=== PATIENT | male | born 1980 | race Caucasian/White ===

== ENCOUNTER 2016-10-31 17:32 | Emergency (ER) | payer BC ==
[2016-10-31] MEDS ORDERED: predniSONE 20 MG Tab PO STA (17:58)
[2016-10-31 18:02] VITALS: BP 135/95
--- NOTE | 2016-10-31 18:04 | EDM.PDOC ---
ED HPI GENERAL MEDICAL PROBLEM - General Chief Complaint: Back Pain or Injury Stated Complaint: BACK PAIN Time Seen by Provider: 10/31/16 17:39 Source of Information: Reports: Patient, RN Notes Reviewed History Limitations: Reports: No Limitations - History of Present Illness INITIAL COMMENTS - FREE TEXT/NARRATIVE: The patient states that he developed bilateral lower back pain this past Wednesday , 10/25/2016, while walking, but that it moved to just his lower left back about 2 days ago. The pain is made worse with sitting, lying supine, walking, and flexing. It does not radiate, and he denies having any neurologic symptoms such as tingling, numbness, or weakness. He states that he saw his chiropractor on 10/26/2016, and again on 10/29/2016, without relief. He then went to the [facility] on 10/29/2016 where no images were obtained, but he was prescribed Norflex 100 mg po BID. He states that this is not helping, either. He states that he had similar symptoms many years ago, but that the symptoms resolved after he was seen by a chiropractor. Treatments COMMUNITY INTEGRATION SPECIALIST: Reports: Cold Therapy, NSAIDS, Other (see below) Other Treatments COMMUNITY INTEGRATION SPECIALIST: heat pad Left Lower Back Pain Score (Numeric/FACES): 10 - Related Data Allergies Allergy/AdvReac Type Severity Reaction Status Date / Time No Known Allergies Allergy Verified 10/31/16 17:44 Home Meds: Home Meds Albuterol Sulfate [Albuterol Sulfate HFA] 2 puff INH Q6HR PRN 01/16/14 [History] Famotidine 20 mg PO BID #30 tablet 01/16/14 [Rx] Fluticasone/Salmeterol [Advair HFA 115-21 MCG] 1 puff INH DAILY 01/16/14 [ History] predniSONE [Prednisone] 20 mg PO DAILY #15 tablet 01/16/14 [Rx] Prednisone [IMW: predniSONE] 20 mg PO DAILY #5 tab 10/31/16 [Rx] Past Medical History Psychiatric History: Reports: Anxiety, Depression - Past Surgical History HEENT Surgical History: Reports: Oral Surgery ([place] teeth extraction) Social & Family History - Family History Family Medical History: Noncontributory - Tobacco Use Smoking Status *Q: Never Smoker Tobacco Use Within Last Twelve Months: Smokeless Tobacco (Chews 1.5 cans per day ) Second Hand Smoke Exposure: No - Alcohol Use Alcohol Use History: Yes Days Per Week of Alcohol Use: 1 Number of Drinks Per Day: 1 Total Drinks Per Week: 1 Date/Time of Last Drink Comment: None since early 2015 - Recreational Drug Use Recreational Drug Use: No - Living Situation & Occupation Living situation: Reports: , with Spouse, with Family (3 kids) 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) ED ROS GENERAL - Review of Systems Review Of Systems: See Below Constitutional: Reports: No Symptoms HEENT: Reports: No Symptoms Respiratory: Reports: No Symptoms Cardiovascular: Reports: No Symptoms Endocrine: Reports: No Symptoms GI/Abdominal: Reports: No Symptoms : Reports: No Symptoms Musculoskeletal: Reports: No Symptoms Skin: Reports: No Symptoms Neurological: Reports: No Symptoms Psychiatric: Reports: No Symptoms Hematologic/Lymphatic: Reports: No Symptoms Immunologic: Reports: No Symptoms ED EXAM,LOWER BACK PAIN/INJURY - Physical Exam Exam: See Below Exam Limited By: No Limitations General Appearance: Alert, WD/WN, No Apparent Distress Back Exam: Other (No visible abnormality to the back, such as swelling, erythema , or ecchymosis. Tenderness to palpation along the vertebral spine. No paraspinous tenderness. There is reproducible tenderness to palpation over the left SI joint, none over the right. The patient is able to flex his spine to approximately 10-15, and extend his spine to approximately 20. He is able to tilt his spine to the left approximately 10 and to the right approximately 20 . He is able to twist his spine approximately 20 bilaterally. Unilateral knee bend is normal bilaterally. Straight leg raise is positive at 5 bilaterally.) Course - Vital Signs Last Recorded V/S: Last Vital Signs Temp 36.7 C 10/31/16 17:58 Pulse 88 10/31/16 17:58 Resp BP 135/95 H 10/31/16 17:58 Pulse Ox - Orders/Labs/Meds Meds: Medications Discontinued Medications Generic Name Dose Route Start Last Admin Trade Name Freq PRN Reason Stop Dose Admin Prednisone 60 mg 10/31/16 17:58 Prednisone PO 10/31/16 17:59 ONETIME STA - Re-Assessments/Exams Free Text/Narrative Re-Assessment/Exam: 10/31/16 17:59 The patient appears to have a muscle spasm overlying his left sacroiliac joint, but for some reason was falsifying his physical exam with a positive straight leg raise bilaterally at only 5. I want the patient to continue his previously prescribed Norflex, and I will start him on a 6-day course of prednisone. Departure - Departure Time of Disposition: 18:00 Disposition: Home, Self-Care 01 Condition: Good Clinical Impression: Low back strain - Discharge Information Prescriptions: Prednisone [IMW: predniSONE] 20 mg PO DAILY #5 tab Referrals: Chloé Shaikh [employer] [Primary Care Provider] - Forms: ED Department Discharge Additional Instructions: You were seen in the emergency room for lower left back pain. On examination, it appears that you have a strain in your lower back. We recommend that you continue taking the orphenadrine every 12 hours. You have been started on the steroid prednisone. Take one tablet daily, with food, as prescribed, starting tomorrow, 11/01/2016. DO NOT take an NSAID, such as aspirin, ibuprofen, Advil, Motrin, naproxen, or Aleve while you are taking prednisone. If your symptoms persist past 5 days, please follow-up with your PCP, Yesenia Shaikh. If any other problems, please do not hesitate to return to the ER.
== END 2016-10-31 18:17 | disposition home or self-care (01) ==
LOC: JD.ED 17:32
DX: S39.012A Strain of muscle, fascia and tendon of lower back, initial encounter (principal); Z79.899 Other long term (current) drug therapy; X58.XXXA Exposure to other specified factors, initial encounter
CPT/HCPCS: 99283; A9270